=== PATIENT | female | born 1990 | race Two or more races ===

== ENCOUNTER 2024-03-10 21:37 | Emergency (ER) | payer OTHER ==
[~2024-03-10] VITALS: Ht 175.3 cm; Wt 70.5 kg
[2024-03-10 22:04] VITALS: BP 121/69; PULSE 86; RESP 18; TEMP 98.7
[2024-03-10] MEDS ORDERED: TOPI25 PO (22:08)
[2024-03-10] MEDS ORDERED: [UNRECOGNIZED DRUG - CODE] PO (22:08)
[2024-03-10] MEDS ORDERED: RIME75TA PO (22:08)
[2024-03-10] MEDS ORDERED: METH-812 PO (23:54)
[2024-03-10] MEDS ORDERED: IBUP-1492 PO (23:54)
[2024-03-11] MEDS ORDERED: KETOROLAC TROMETHAMINE 30 MG/ML VIAL IM ONE
[2024-03-11] MEDS: KETOROLAC TROMETHAMINE 60 MG/2 ML VIAL IM ONE
== END 2024-03-11 00:07 | disposition home or self-care (01) ==
LOC: EMS 21:37
DX: S13.4XXA Sprain of ligaments of cervical spine, initial encounter (principal); V49.40XA Driver injured in collision with unspecified motor vehicles in traffic accident, initial encounter; Y93.89 Activity, other specified; Y92.89 Other specified places as the place of occurrence of the external cause; Y99.8 Other external cause status
CPT/HCPCS: 99283; 96372; J1885